=== PATIENT | male | born 1990 | race Caucasian/White ===

== ENCOUNTER 2017-12-12 01:37 | Emergency (ER) | payer OTHER ==
[2017-12-12 01:50] VITALS: BMI 24.3
[2017-12-12] MEDS ORDERED: Sodium Chloride 0.9% 2,000 ML IV STA (01:59)
[2017-12-12 02:08] VITALS: TEMP 97.8; O2SAT 99
--- NOTE | 2017-12-12 02:17 | ED PDOC ---
Arrival/HPI - General Chief Complaint: GI Problem Time Seen by Provider: 12/12/17 01:55 Historian: Patient - History of Present Illness Narrative History of Present Illness (Text): 12/12/17 02:16 A 27 year old male, whose past medical history includes left testicular cancer and lymph node dissection last year, presents to the emergency department complaining of nausea and vomiting since yesterday afternoon. Patient reports nausea after eating breakfast. Patient notes about 7-8 episodes of vomiting. Patient denies any abdominal pain, or any other complaints at this time. Symptom Onset: Sudden Symptom Course: Unchanged Activities at Onset: Rest Context: Home Past Medical History - Provider Review Nursing Documentation Reviewed: Yes - Hematological/Oncological Hx Blood Disorders: Yes Hx Cancer: Yes - Psychiatric Hx Substance Use: No Family/Social History - Physician Review Nursing Documentation Reviewed: Yes Family/Social History: No Known Family HX Smoking Status: Never Smoked Hx Alcohol Use: Yes Frequency of alcohol use: Socially Hx Substance Use: No Allergies/Home Meds Allergies/Adverse Reactions: Allergies No Known Allergies Allergy (Verified 12/12/17 01:50) Review of Systems - Physician Review All systems were reviewed & negative as marked: Yes - Review of Systems Constitutional: absent: Fevers Gastrointestinal: Nausea, Vomiting. absent: Abdominal Pain Physical Exam Vital Signs Reviewed: Yes Vital Signs Temp Pulse Resp BP Pulse Ox 12/12/17 01:59 97.8 F 51 L 16 125/70 99 Temperature: Afebrile Blood Pressure: Normal Pulse: Regular Respiratory Rate: Normal Appearance: Positive for: Well-Appearing, Non-Toxic, Comfortable Pain Distress: None Mental Status: Positive for: Alert and Oriented X 3 - Systems Exam Head: Present: Atraumatic, Normocephalic Pupils: Present: PERRL Extroacular Muscles: Present: EOMI Conjunctiva: Present: Normal Mouth: Present: Moist Mucous Membranes Neck: Present: Normal Range of Motion Respiratory/Chest: Present: Clear to Auscultation, Good Air Exchange. No: Respiratory Distress, Accessory Muscle Use Cardiovascular: Present: Regular Rate and Rhythm, Normal S1, S2. No: Murmurs Abdomen: Present: Normal Bowel Sounds, Scars (surgical scar from lymph node dissection). No: Tenderness, Distention, Peritoneal Signs Back: Present: Normal Inspection Upper Extremity: Present: Normal Inspection. No: Cyanosis, Edema Lower Extremity: Present: Normal Inspection. No: Edema Neurological: Present: GCS=15, CN II-XII Intact, Speech Normal Skin: Present: Warm, Dry, Normal Color. No: Rashes Psychiatric: Present: Alert, Oriented x 3, Normal Insight, Normal Concentration Medical Decision Making ED Course and Treatment: 12/12/17 02:14 Impression: A 27 year old male with nausea and vomiting. Plan: -- labs -- Urinalysis -- Zofran, Toradol, IV fluids -- Reassess and disposition Progress Notes: - Lab Interpretations Lab Results: 12/12/17 02:10 12/12/17 02:10 Lab Results 12/12/17 04:00: Urine Color Yellow, Urine Appearance Clear, Urine pH 6.0, Ur Specific [place] >= 1.030, Urine Protein Trace H, Urine Glucose (UA) Negative, Urine Ketones 15 H, Urine Blood Negative, Urine Nitrate Negative, Urine Bilirubin Small H, Urine Urobilinogen 1.0 H, Ur Leukocyte Esterase Negative, Urine RBC 0 - 2, Urine WBC 1 - 3, Ur Epithelial Cells 0 - 2, Urine Bacteria Few 12/12/17 02:10: Sodium 143, Potassium 3.6, Chloride 106, Carbon Dioxide 25, Anion Gap 16, BUN 11, Creatinine 0.8, Est GFR ( Amer) > 60, Est GFR (Non- Af Amer) > 60, Random Glucose 113 H, Calcium 9.7, Total Bilirubin 1.1, AST 18, ALT 27, Alkaline Phosphatase 52, Total Protein 6.8, Albumin 3.9, Globulin 2.8, Albumin/Globulin Ratio 1.4, Lipase 84 12/12/17 02:10: PT 13.2 H, INR 1.15 H 12/12/17 02:10: WBC 8.1, RBC 4.71, Hgb 15.3, Hct 43.7, MCV 92.8, MCH 32.5, MCHC 35.0, RDW 12.3, Plt Count 175, MPV 10.4, Gran % 79.4 H, Lymph % (Auto) 15.4 L, [place] % (Auto) 4.8, Eos % (Auto) 0.2 L, Baso % (Auto) 0.2, Gran # 6.43, Lymph # ( Auto) 1.3, [place] # (Auto) 0.4, Eos # (Auto) 0.0, Baso # (Auto) 0.02 I have reviewed the lab results: Yes - Medication Orders Current Medication Orders: Discontinued Medications Sodium Chloride (Sodium Chloride 0.9%) 2,000 mls @ 999 mls/hr IV .Q2H1M STA Stop: 12/12/17 03:59 Last Admin: 12/12/17 02:23 Dose: 999 mls/hr eMAR Start Stop Document 12/12/17 02:23 YP (Rec: 12/12/17 02:23 [id number]) Intravenous Solution Start Date 12/12/17 Start Time 02:23 Ketorolac Tromethamine (Toradol) 30 mg IVP STAT STA Stop: 12/12/17 02:00 Last Admin: 12/12/17 02:23 Dose: 30 mg MAR Pain Assessment Document 12/12/17 02:23 YP (Rec: 12/12/17 02:24 YP [facility] [place], [id number]) Pain Reassessment Is this a pain reassessment? No IVP Administration Document 12/12/17 02:23 YP (Rec: 12/12/17 02:24 [place] [facility] [id number] Charges for Administration # of IVP Administrations 1 Ondansetron HCl (Zofran Inj) 8 mg IVP STAT STA Stop: 12/12/17 02:00 Last Admin: 12/12/17 02:24 Dose: 8 mg IVP Administration Document 12/12/17 02:24 YP (Rec: 12/12/17 02:24 YP [facility] [place] [id number]) Charges for Administration # of IVP Administrations 1 - Scribe Statement The provider has reviewed the documentation as recorded by the Molly Genao Provider Scribe Attestation: All medical record entries made by the Scribanni were at my direction and personally dictated by me. I have reviewed the chart and agree that the record accurately reflects my personal performance of the history, physical exam, medical decision making, and the department course for this patient. I have also personally directed, reviewed, and agree with the discharge instructions and disposition. Disposition/Present on Arrival - Present on Arrival Any Indicators Present on Arrival: No History of DVT/PE: No History of Uncontrolled Diabetes: No Urinary Catheter: No History of Decub. Ulcer: No History Surgical Site Infection Following: None - Disposition Have Diagnosis and Disposition been Completed?: Yes Diagnosis: Viral gastroenteritis Disposition: HOME/ ROUTINE Disposition Time: 05:43 Patient Plan: Discharge Patient Problems: Current Active Problems Problem Status Onset Viral gastroenteritis Acute Condition: GOOD Discharge Instructions (ExitCare): Gastroenteritis (ED) Additional Instructions: Vishal - Sorry you are not feeling well. CLEAR LIQUIDS ONLY for the next 48 hours. Zofran is for Nausea or Vomiting. It dissolves on your tongue and is absorbed in your mouth so it will work even if you are vomiting. Follow up with your doctors next week. Return to us if worse or new symptoms occur. Best- Dr. Teo Schwarz Prescriptions: Ondansetron ODT [Zofran ODT] 8 mg PO TID #30 odt Forms: [facility] (Thai), SCHOOL NOTE, WORK NOTE
[2017-12-12 02:18] LABS: BASO # 0.02 K/mm3 (0.0-2.0); BASO % 0.2 % (0.0-3.0); EOS % 0.2 % (1.5-5.0); GRAN # 6.43 (1.4-6.5); GRAN % 79.4 % (50.0-68.0); HEMOGLOBIN 15.3 g/dL (14.0-18.0); LYMPH # 1.3 (1.2-3.4); LYMPH % 15.4 % (22.0-35.0); MEAN CELL VOLUME 92.8 fl (80.0-105.0); MEAN CORPUSCULAR HEMOGLOBIN 32.5 pg (25.0-35.0); MEAN PLATELET VOLUME 10.4 fl (7.0-11.0); MONO # 0.4 (0.1-0.6); MONO % 4.8 % (1.0-6.0); RBC 4.71 10^6/uL (3.5-6.1); RED CELL DISTRIBUTION WIDTH 12.3 % (11.5-14.5); WHITE BLOOD COUNT 8.1 10^3/ul (4.5-11.0)
[2017-12-12 02:31] LABS: INR 1.15 (0.93-1.08); PROTHROMBIN TIME 13.2 SECONDS (9.4-12.5)
[2017-12-12 02:32] LABS: ALB/GLOB RATIO 1.4 (1.1-1.8); ALBUMIN 3.9 g/dL (3.0-4.8); ALT/SGPT 27 U/L (7-56); AST/SGOT 18 U/L (17-59); BLOOD UREA NITROGEN 11 mg/dL (7-21); CALCIUM 9.7 mg/dL (8.4-10.5); GFR AFRICAN-AMERICAN > 60; GFR NON-AFRICAN AMERICAN > 60; LIPASE 84 U/L (23-300)
[2017-12-12 04:19] LABS: URINE APPEARANCE CLEAR (CLEAR); URINE BILIRUBIN SMALL (NEGATIVE); URINE BLOOD NEGATIVE (NEGATIVE); URINE COLOR YELLOW (YELLOW); URINE GLUCOSE (UA) NEGATIVE (NEGATIVE); URINE LEUKOCYTE ESTERASE NEGATIVE Leu/uL (NEGATIVE); URINE NITRATE NEGATIVE (NEGATIVE); URINE PROTEIN TRACE mg/dL (<30 mg/dL)
[2017-12-12 04:36] LABS: URINE BACTERIA FEW (NEG); URINE EPITHELIAL CELLS 0 - 2 /hpf (0-5); URINE RBC 0 - 2 /hpf (0-2)
[2017-12-12 06:56] VITALS: BP 121/68; PULSE 61; RESP 18
== END 2017-12-12 06:56 | disposition home or self-care (01) ==
LOC: ED 01:37
DX: A08.4 Viral intestinal infection, unspecified (principal)
CPT/HCPCS: 80053; 81001; 83690; 85025; 85610; 96374; 96375; 99284; J1885; J2405; J7040